=== PATIENT | female | born 1975 | race Caucasian/White ===

== ENCOUNTER 2017-03-24 14:28 | Emergency (ER) | payer SELFPAY ==
--- NOTE | 2017-03-24 14:33 | NUR ---
CALLED IN WAITING ROOM NO ANSWER
--- NOTE | 2017-03-24 14:55 | NUR ---
Patient left without being seen by ER Physician
--- NOTE | 2017-03-24 14:55 | NUR ---
CALLED IN WAITING ROOM NO ANSWER
== END 2017-03-24 15:00 | disposition left against medical advice (07) ==
LOC: ER 14:35
DX: Z53.21 Procedure and treatment not carried out due to patient leaving prior to being seen by health care provider (principal)